=== PATIENT | male | born 1990 | race African-American/Black ===

== ENCOUNTER 2020-02-09 19:09 | Emergency (ER) | payer BC, OTHER ==
[2020-02-09] MEDS ORDERED: Acetaminophen 500 MG TAB ONE (22:06)
[2020-02-09] MEDS ORDERED: Ketorolac Tromethamine 30 MG/ML VIAL ONE (22:11)
[2020-02-09] MEDS ORDERED: Cyclobenzaprine 10 MG TAB ONE (22:11)
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
== END 2020-02-09 22:58 | disposition home or self-care (01) ==
LOC: ERS 19:09
DX: M62.838 Other muscle spasm (principal); M79.89 Other specified soft tissue disorders; V43.52XA Car driver injured in collision with other type car in traffic accident, initial encounter
CPT/HCPCS: 70450; 72125; 96372; J1885